=== PATIENT | male | born 1945 | race Caucasian/White ===

== ENCOUNTER 2017-02-21 07:09 | Emergency (ER) | payer BC ==
--- NOTE | 2017-02-21 07:44 | UC ---
Throat Pain/Nasal Bimal HPI - HPI Summary HPI Summary: 71 yo male c/o 3-4 days fullness, sore throat, feeling "off." No rash. Minimal cough. No GI upset. Minimal cough. No sob / cp / palpitations. Currently traveling (here this week ), leaving tomorrow. - History of Current Complaint Chief Complaint: UCRespiratory Stated Complaint: SORE THROAT Time Seen by Provider: 02/21/17 07:14 Hx Obtained From: Patient - Allergies/Home Medications Allergies/Adverse Reactions: Allergies Allergy/AdvReac Type Severity Reaction Status Date / Time No Known Allergies Allergy Verified 02/21/17 07:18 Home Medications: Home Medications Aspirin [Ino Aspirin EC Low Dose 81 MG] 81 mg PO DAILY 02/21/17 [History Confirmed 02/21/17] Atorvastatin* [Lipitor*] 10 mg PO DAILY 02/21/17 [History Confirmed 02/21/17] Fluticasone Propionate (Nasal) [Allergy Nasal Campbell 24 Ho] 50 mcg NA BID [History Confirmed 02/21/17] Metoprolol Tartrate TAB* [Lopressor TAB*] 50 mg PO DAILY 02/21/17 [History Confirmed 02/21/17] Valsartan/HCTZ 160/12.5(NF) [Diovan HCT 160/12.5 (NF)] 1 tab PO DAILY 02/21/17 [ History Confirmed 02/21/17] PMH/Surg Hx/FS Hx/Imm Hx Previously Healthy: Yes - htn Cardiovascular History: Hypertension - Surgical History Surgical History: Yes Surgery Procedure, Year, and Place: tonsillectomy and adnoids, bilateral inguinal hernia repair - Social History Alcohol Use: Occasionally Substance Use Type: None Smoking Status (MU): Never Smoked Tobacco - Immunization History Most Recent Influenza Vaccination: utd Most Recent Tetanus Shot: utd Most Recent Pneumonia Vaccination: utd Review of Systems Constitutional: Other - see hpi Skin: Negative Eyes: Negative ENT: Sore Throat Respiratory: Negative Cardiovascular: Negative Gastrointestinal: Negative Genitourinary: Negative Motor: Negative Neurovascular: Negative Musculoskeletal: Negative Neurological: Negative Psychological: Negative All Other Systems Reviewed And Are Negative: Yes Physical Exam Triage Information Reviewed: Yes Appearance: Well-Appearing, Well-Nourished Vital Signs: Initial Vital Signs Temp 97.5 F 02/21/17 07:20 Pulse 69 02/21/17 07:20 Resp 18 02/21/17 07:20 BP 133/89 02/21/17 07:20 Pulse Ox 99 02/21/17 07:20 Vital Signs Reviewed: Yes Eye Exam: Normal ENT: Positive: Pharyngeal erythema - scattered red areas, susp viral. Uvula midline. Tonsils not enlarged. Post phay red, TM dull - au dull, rtx'd Neck exam: Normal Neck: Positive: Supple, Nontender Respiratory Exam: Normal Respiratory: Positive: Chest non-tender, Lungs clear, Normal breath sounds, No respiratory distress, No accessory muscle use Cardiovascular Exam: Normal Cardiovascular: Positive: RRR, No Murmur, Pulses Normal, Brisk Capillary Refill Abdominal Exam: Normal Abdomen Description: Positive: Nontender, No Organomegaly Musculoskeletal Exam: Normal Neurological Exam: Normal - nonfocal Psychological Exam: Normal Skin Exam: Normal Throat Pain/Nasal Course/Dx - Course Course Of Treatment: RST neg d/w pt. No new problems in CCC. He does want a script for amoxil to take with him (travel[place]) in case worsens. Questions answered as posed to the best of my ability. - Differential Dx/Diagnosis Provider Diagnoses: pharyngitis Discharge - Discharge Plan Condition: Stable Disposition: HOME Patient Education Materials: Pharyngitis (ED) Referrals: Non Staff,Doctor [Primary Care Provider] - Additional Instructions: Follow up primary care physician upon your return home. Seek medical attention for worse or new problems in the meantime.
== END 2017-02-21 08:01 | disposition home or self-care (01) ==
LOC: UCEAST 07:09
DX: J02.9 Acute pharyngitis, unspecified (principal); I10 Essential (primary) hypertension
CPT/HCPCS: 87651; 99202; G0463